=== PATIENT | female | born 1975 | race Caucasian/White ===

== ENCOUNTER 2021-07-26 19:24 | Emergency (ER) | payer OTHER, SELFPAY ==
--- NOTE | 2021-07-26 | ECG_ITS ---
Test Reason : CP Blood Pressure : / mmHG Vent. Rate : 094 BPM Atrial Rate : 094 BPM P-R Int : 164 ms QRS Dur : 094 ms QT Int : 362 ms P-R-T Axes : 078 045 059 degrees QTc Int : 452 ms Normal sinus rhythm Normal ECG No previous ECGs available Referred By: Generic ED Physician Electronically Signed By:Dm Dukes
--- NOTE | ~2021-07-26 | CT_ITS ---
EXAMINATION: CT HEAD WITHOUT CONTRAST CLINICAL INFORMATION: Severe headache COMPARISON: None TECHNIQUE: Contiguous axial imaging was performed from the skull base to vertex without intravenous administration of contrast. This CT examination was performed using dose optimization techniques as appropriate, variously including the following: *Automated exposure control *Adjustment of mA and/or kV according to patient size (this includes techniques or standardized protocols for targeted exams where dose is matched to indication/reason for exam; i.e. extremities or head) *Use of iterative reconstruction technique DLP: 635 mGy-cm FINDINGS: There is no evidence of acute intracranial hemorrhage or territorial infarction. No abnormal mass effect or midline shift is seen. Segundo to white matter differentiation is well preserved. No extra-axial fluid collections are identified. The ventricles are normal in size. There is no abnormal attenuation within the brain parenchyma. The osseous structures and soft tissues are normal. The mastoid air cells and visualized portions of the paranasal sinuses are well aerated. CT/CT head/brain wo con IMPRESSION: No acute intracranial pathology.
--- NOTE | ~2021-07-26 | XR_ITS ---
EXAMINATION: XR CHEST CLINICAL INFORMATION: Chest pain COMPARISON: None TECHNIQUE: 2 views of the chest were obtained. FINDINGS: No acute finding. Lung devi are grossly clear. The cardiac silhouette is within normal limits. There is no effusion. No infiltrate. The hilar structures do not appear enlarged. XR/XR chest 2V IMPRESSION: No acute finding.
[2021-07-26 19:32] VITALS: BP 183/108; PULSE 91; RESP 18; TEMP 36.7; O2SAT 97; BMI 39.8
--- NOTE | 2021-07-26 19:41 | ED.CHESTPAIN ---
HPI - Chest Pain General Chief Complaint: Chest Pain Stated Complaint: abnormal EKG Time Seen by Provider: 07/26/21 19:30 Source: patient Mode of arrival: ambulatory Limitations: no limitations History of Present Illness HPI narrative: 46 y/o female with history of HTN presents to the ER for evaluation of abnormal EKG from Urgent Care and sudden onset of chest pain and headache that started earlier when she was driving. She reports the pain was sharp, nonradiating, and lasted about 1 hour. She went to Urgent Care where there was question of possible EKG changes. Patient reports she has been having intermittent milder pains for the last several months to maybe a year. She has no shortness of breath, diaphoresis, nausea. She does not a diabetic and does not smoke. She has no family history of early heart disease. She is on lisinopril 5 mg a day for blood pressure and intermittently is noncompliant. She states her blood pressure at home is anywhere from 120-160 systolic. Blood pressure on arrival is significantly elevated 180/100. She has a mild headache. No chest pain at this time. MD complaint: chest pain Onset (ago): hour(s) Timing of current episode: now resolved Prior episodes: No Onset: during rest Pain location: left chest Pain radiation: none Severity: severe Quality: sharp Relieving factors: nothing Exacerbating factors: nothing Treatment prior to arrival: none Risk Factors Coronary artery disease risk factors: none Thoracic aortic dissection risk factors: none Related Data On Oral Contraceptives: No Previous Rx's Medication Instructions Recorded amlodipine 5 mg tablet (Norvasc) 5 mg PO DAILY #30 tab 07/26/21 Allergies Allergy/AdvReac Type Severity Reaction Status Date / Time Penicillins Allergy Unknown RASH Unverified 02/10/20 17:59 Review of Systems Review of Systems: Constitutional: No Fever, No Chills ENT/Mouth: No sore throat, No Rhinorrhea, No Swallowing Difficulty Eyes: No Eye Pain, No Swelling, No Redness Cardiovascular: + Chest Pain, + SOB, No Orthopnea, No Edema Respiratory: No Cough, No Sputum, No Wheezing, No dyspnea Gastrointestinal: No Nausea, No Vomiting, No Diarrhea, No abdominal Pain Genitourinary: No Dysuria, No Urinary Frequency, No Hematuria Musculoskeletal: No joint pain, No Myalgias Skin: No Skin Lesions, No rash Neuro: No Weakness, No Numbness, No Dizziness, + Headache Psych: + Anxiety/Panic, No Depression Heme/Lymph: No Bruising, No Lymphadenopathy Endocrine: No Polyuria, No Polydipsia [facility] Past Medical History Medical History (Updated 07/26/21 @ 20:44 by CAROLINE Calderon) Hypertension Social History Social History Advance Directives: No Advance Directives Information Provided: No Physical Exam Vital Signs: Vital Signs: Last Vital Signs Temp 98.1 F 07/26/21 19:32 Pulse 91 07/26/21 19:32 Resp 18 07/26/21 19:32 BP 183/108 H 07/26/21 19:32 Pulse Ox 97 07/26/21 19:32 BMI result Body Mass Index 39.8 Appearance: Alert. Oriented X3. No acute distress. Eyes: Pupils equal, round and reactive to light. ENT: Pharynx normal. Neck: Normal inspection. Neck supple. CVS: Normal heart rate and rhythm. Pulses normal. No chest wall tenderness. Respiratory: No respiratory distress. Breath sounds normal. Abdomen: Soft and nontender. +BS x4 Skin: Skin warm and dry. Normal skin color. Normal skin turgor. No rashes. Extremities: No lower extremity edema. No calf tenderness. Neuro: Oriented X 3. No motor deficit. No sensory deficit. And nonfocal, steady gait. Course Course Course Narrative: 46 y/o female with history of HTN presenting with episode of sharp left sided chest pain and headache earlier today. There was concern of EKG changes at the urgent care. This was reviewed and do not seem to be consistent with ischemic changes. Will repeat here. Will check troponin. Her blood pressure is elevated 180/100. She is on low-dose lisinopril and is intermittently compliant. Will give her dose of Norvasc now. She has no chest pain at this time. She appears well. No risk factors for PE. Reevaluation(s) Reevaluation #1: EKG is normal. Troponin is negative. Chest x-ray is normal, head CT is normal. Lab workup otherwise unremarkable Her blood pressure improved nicely with 5 mg of Norvasc. She is wanting to go home and feeling better. Will plan to discharge on oral amlodipine 5 mg daily and have her follow-up with her primary care doctor. She was instructed to come back to the ER if she develops new or recurrent symptoms. MDM - Chest Pain Medical Records Data Attestation: I reviewed the patient's medical records. Lab Data Attestation: I reviewed the patient's lab results. Result diagrams: 07/26/21 20:04 07/26/21 20:04 Labs: Lab Results 07/26/21 07/26/21 07/26/21 Range/Units 20:04 20:04 20:04 WBC 8.5 (4.8-10.8) X10*3/uL RBC 5.06 (4.20-5.50) X10*6/uL Hgb 14.1 (12.0-16.0) g/dl Hct 42.9 (37.0-47.0) % MCV 84.8 (80.0-98.0) fL MCH 27.9 (27.0-33.0) pg MCHC 32.9 (31.0-35.0) g/dl RDW 13.2 (11.0-16.0) % Plt Count 322 (160-400) X10*3/uL MPV 10.4 (9.4-12.3) fL Immature Gran % (Auto) 0.4 (0.0-0.4) % Neut % (Auto) 58.1 (45-73) % Lymph % (Auto) 31.9 (20-40) % Coleman % (Auto) 7.5 (2-11) % Eos % (Auto) 1.9 (0-4) % Baso % (Auto) 0.2 (0-2) % Lymph # (Auto) 2.7 (1.2-4.9) X10*3/uL Coleman # (Auto) 0.6 (0.1-1.2) X10*3/uL Eos # (Auto) 0.2 (0.0-0.4) X10*3/uL Baso # (Auto) 0.0 (0.0-0.2) X10*3/uL Abs Immat Gran (auto) 0.03 (0.00-0.03) X10*3/uL Absolute Neuts (auto) 5.0 (2.0-8.3) x10*3/uL Absolute Nucleated RBC 0.000 (0.0-0.012) X10*3/uL Nucleated RBC % (auto) 0.0 (0.0-0.2) /100WBC Sodium 137 (135-145) mmol/L Potassium 4.1 (3.3-5.1) mmol/L Chloride 105 (96-108) mmol/L Carbon Dioxide 23 (22-29) mmol/L Anion Gap 13 (12-20) BUN 8 L (9-16) mg/dL Creatinine 0.66 (0.5-1.4) mg/dL Estim Creat Clear Calc 115.7 Estimated GFR > 60 Random Glucose 123 H (60-115) mg/dL Calcium 9.2 (8.4-10.2) mg/dL Magnesium 2.0 (1.6-2.6) mg/dL Total Bilirubin 0.5 (0.0-1.0) mg/dL Direct Bilirubin < 0.2 (0.0-0.5) mg/dL AST 23 (5-31) U/L ALT 36 H (0-31) U/L Alkaline Phosphatase 55 (39-117) U/L Troponin I High Sens < 3.5 (<3.5-17.0) ng/L Total Protein 7.6 (6.5-8.0) g/dL Albumin 4.3 (3.5-5.0) g/dL ECG Data ECG #1: Attestation: I personally reviewed and interpreted this ECG as follows: ECG interpretation date: 07/26/21 ECG interpretation time: 21:24 Prior ECG tracings: available for review Interpretation: Normal sinus rhythm, heart rate 94 beats per minute, normal NJ interval, normal QTC, normal EKG, no ST segment elevations or depressions. Discharge Plan Discharge Clinical Impression: Atypical chest pain, Hypertension Patient Disposition: Home, Self-Care Instructions: Hypertension (ED), Noncardiac Chest Pain (ED) Additional Instructions: Your lab workup was unremarkable. Your EKG was normal. Your chest x-ray and head CT were also normal. Recommend starting amlodipine 5 mg once a day to help control your blood pressure. This was sent to your pharmacy. Starting tomorrow morning. Monitor your blood pressure home and follow-up with your primary care doctor. If you develop new or worsening symptoms call 911 or come back to the ER for further evaluation. Prescriptions: New amlodipine [Norvasc] 5 mg tablet 5 mg PO DAILY Qty: 30 0RF Interventions: ED Discharge Assessment Last Done: 07/26/21 21:04 Discharge Date/Time: 07/26/21 21:06
[2021-07-26] MEDS: amLODIPine Besylate 5 MG TABLET PO (19:42)
--- NOTE | 2021-07-26 19:45 | PC.NURSE ---
pt to room from triage. pt chg into gown, labs drawn pt on monitor. b/p high. MD aware and medicated as per emar. pt states cp has decreased. pt denies n/v or diaphoresis. will continue to monitor pt.
[2021-07-26 20:07] LABS: MANUAL DIFF FLAG NO
[2021-07-26 20:10] LABS: Basophils Percent Auto 0.2 % (0-2); Eosinophils Absolute Auto 0.2 X10*3/uL (0.0-0.4); Eosinophils Percent Auto 1.9 % (0-4); Hematocrit 42.9 % (37.0-47.0); Hemoglobin 14.1 g/dl (12.0-16.0); Imm Gran Abs Auto 0.03 X10*3/uL (0.00-0.03); Imm Gran Pct Auto 0.4 % (0.0-0.4); Lymphocytes Absolute Auto 2.7 X10*3/uL (1.2-4.9); Lymphocytes Percent Auto 31.9 % (20-40); Mean Corpuscular HGB Conc 32.9 g/dl (31.0-35.0); Mean Corpuscular Hemoglobin 27.9 pg (27.0-33.0); Mean Corpuscular Volume 84.8 fL (80.0-98.0); Mean Platelet Volume 10.4 fL (9.4-12.3); Monocytes Absolute Auto 0.6 X10*3/uL (0.1-1.2); Monocytes Percent Auto 7.5 % (2-11); Neutrophils Percent Auto 58.1 % (45-73); Platelet Count 322 X10*3/uL (160-400); Red Blood Count 5.06 X10*6/uL (4.20-5.50); Red Cell Distribution Width 13.2 % (11.0-16.0); White Blood Count 8.5 X10*3/uL (4.8-10.8)
[2021-07-26 20:26] LABS: Alanine Aminotransferase 36 U/L (0-31); Albumin Level 4.3 g/dL (3.5-5.0); Alkaline Phosphatase 55 U/L (39-117); Anion Gap 13 (12-20); Aspartate Amino Transferase 23 U/L (5-31); Bilirubin Direct < 0.2 mg/dL (0.0-0.5); Bilirubin Total 0.5 mg/dL (0.0-1.0); Blood Urea Nitrogen 8 mg/dL (9-16); Calcium 9.2 mg/dL (8.4-10.2); Carbon Dioxide 23 mmol/L (22-29); Chloride 105 mmol/L (96-108); Creatinine Clr Calc Pharmacy 115.7; Estimated Glomerular Filt Rate > 60; Glucose Random 123 mg/dL (60-115); Potassium 4.1 mmol/L (3.3-5.1); Sodium 137 mmol/L (135-145); Total Protein 7.6 g/dL (6.5-8.0)
[2021-07-26 20:32] LABS: Troponin-I High Sensitivity < 3.5 ng/L (<3.5-17.0)
== END 2021-07-26 21:06 | disposition home or self-care (01) ==
LOC: HO.ED 20:54
PROVIDERS: Physician Assistant; Emergency Provider Emergency Medicine Emergency Medical Services
DX: R07.89 Other chest pain (principal); I10 Essential (primary) hypertension; Z91.14 Patient's other noncompliance with medication regimen
CPT/HCPCS: 36415; 70450; 71046; 80048; 80076; 83735; 84484; 85025; 93005; 99283; 99284

== ENCOUNTER 2024-05-28 10:18 | Outpatient (AMB) | payer OTHER, SELFPAY ==
--- NOTE | 2024-05-28 10:59 | MHC.OFFWIV ---
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 Patient Tobacco Use Status: Former Tobacco user Allergies Penicillins Allergy (Unknown, Unverified 05/28/24 11:09) RASH Do you need a note to return to daycare/school/sports/work: No HPI HPI Comments History of Present Illness Details History of Present Illness - The patient is a 49-year-old female presenting with hand pain and associated symptoms potentially related to her cholesterol medication. - For the two months following initiation of a statin for hyperlipidemia management, she developed significant hand pain localized to the palm, base of thumb and joints, progressively worsening without apparent injury. - Accompanied by headaches and neck pain, symptoms coincided with the medication start with no alleviation to date. - She has gained 10 pounds recently, but denies specific dietary changes. - Current therapy includes medication for essential hypertension; however, detailed specifics were not discussed. Physical Exam General: Cooperative, healthy appearing, comfortable, no acute distress and well developed Orientation: Patient oriented x3 Limitations: No limitations Head: Normal to inspection Ears: Hearing grossly normal bilaterally Nose: Normal external nose present Face and sinus: Normal facial exam Eyes: Appearance normal, both eyes and all related structures Neck: Normal visual inspection and Yes full ROM Respiratory: Normal respiratory effort and able to speak in complete sentences. Skin: No rashes or lesions noted Neuro: Patient oriented x3 Extremities: as below [facility] Medical History (Updated 05/28/24 @ 11:24 by Lorri Renee PA-C) Hypertension Social History Patient Tobacco Use Status: Former Tobacco user Review of Systems Const All systems reviewed & are unremarkable except as noted in HPI and below Physical Exam Vital Signs: Last Vital Signs Pulse 79 05/28/24 11:07 BP 130/80 05/28/24 11:07 Pulse Ox 98 05/28/24 11:07 Oxygen Delivery Method Room Air 05/28/24 11:07 Extrem Left upper extremity: hand Details: normal to inspection, normal capillary refill, neuromotor exam normal, neurosensory exam normal, tendon exam normal, normal ROM of fingers and no swelling; no unusual warmth, no abrasions, no lacerations and no ecchymosis Assessment & Plan Assessment & Plan (1) Medication side effects: Code(s): T88.7XXA - Unspecified adverse effect of drug or medicament, initial encounter Plan: The focus is on the probable relationship between the patient's statin usage and her reported hand/joint pain and headaches. It is advisable for the patient to consult her primary care provider regarding the possibility of adjusting her cholesterol medication to mitigate these symptoms. Additionally, evaluation of her recent weight gain should be undertaken, potentially involving laboratory tests or additional interventions as deemed necessary by her primary care provider. Patient was informed and verbally consented to the use of an ambient scribe for clinic note documentation during this visit. Medications: Discontinued amlodipine (Norvasc) Discontinued Reason: Patient no longer taking 5 mg PO DAILY 30 tabs 0RF amoxicillin Discontinued Reason: Patient Completed Course 500 mg PO TID 30 caps 0RF amoxicillin Discontinued Reason: Patient Completed Course 500 mg PO BID 20 tabs 0RF fluconazole (Diflucan) Discontinued Reason: Patient Completed Course 200 mg PO DAILY 7 tabs 0RF Coding Level of Care Code New Pt Level 3 (62554) Diagnoses Medication side effects T88.7XXA
[2024-05-28 11:07] VITALS: BP 130/80; PULSE 79; O2SAT 98
== END 2024-05-28 11:51 | disposition home or self-care (01) ==
PROVIDERS: Visit Provider Physician Assistant
DX: T88.7XXA Unspecified adverse effect of drug or medicament, initial encounter (principal)